=== PATIENT | male | born 2000 | race Caucasian/White ===

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

== ENCOUNTER → 2021-01-17 09:10 | Outpatient (BNVA) | payer BC, SELFPAY | PROVIDERS: Visit Provider Family Medicine | DX: I10 Essential (primary) hypertension (principal); E78.1 Pure hyperglyceridemia; Z68.45 Body mass index [BMI] 70 or greater, adult | CPT/HCPCS: 80053; 80061 ==

== ENCOUNTER → 2022-02-08 10:13 | Outpatient (BNVA) | payer BC, SELFPAY | PROVIDERS: PCP Family Medicine; Visit Provider Family Medicine | DX: I10 Essential (primary) hypertension (principal); K21.9 Gastro-esophageal reflux disease without esophagitis; E78.1 Pure hyperglyceridemia | CPT/HCPCS: 80053; 80061 ==

== ENCOUNTER → 2023-07-24 16:32 | Outpatient (BNVA) | payer OTHER, SELFPAY | PROVIDERS: PCP Family Medicine; Visit Provider Family Medicine | DX: I10 Essential (primary) hypertension (principal); K21.9 Gastro-esophageal reflux disease without esophagitis; E78.1 Pure hyperglyceridemia; Z68.44 Body mass index [BMI] 60.0-69.9, adult; J45.20 Mild intermittent asthma, uncomplicated | CPT/HCPCS: 80053; 80061 ==

== ENCOUNTER 2024-05-13 12:23 | Emergency (ER) | payer OTHER, SELFPAY ==
[2024-05-13] VITALS (8 sets, daily range): BP systolic 155–162; BP diastolic 96–112; PULSE 73–105; RESP 18–20; TEMP 36.4; O2SAT 98–100
--- NOTE | 2024-05-13 12:42 | ED_ITS ---
HPI - Abdominal Pain 2 General: Chief Complaint: Abdominal Pain Stated Complaint: rt side pain Time Seen by Provider: 05/13/24 12:31 Source: patient and family Mode of arrival: ambulatory Limitations: no limitations History of Present Illness: Patient is a 24-year-old male with a history of hypertension, heartburn/acid reflux and super morbid obesity here with complaints of pain to his right upper quadrant that began around 2 to 3 AM this morning. Pain has been constant since onset. He states he has had nausea and vomiting since the pain started. He is not having any pain in his chest. He has not noticed any changes to his bowel movements. No fevers. States he had one similar episode approximately a year ago that lasted an hour or so before subsiding on its own. Denies shortness of breath or difficulty breathing. He is not having any flank pain or urinary symptoms. MD elicited complaint: abdominal pain Pertinent past history: none Onset (ago): hour(s) Pain Consistency: constant Location: RUQ Severity: severe Quality: sharp Radiation: none Migration to: no migration Exacerbating factors: nothing Relieving factors: nothing Associated Symptoms: Reports nausea and vomiting; Denies change in bowel habits, chills, constipation, diarrhea, dysuria, fever(s) and hematemesis Related Data Home Medications Medication Instructions Recorded Confirmed albuterol sulfate 90 mcg/actuation 2 puff inhalation Q6H PRN 05/13/24 05/13/24 aerosol inhaler Shortness Of Breath Or Wheezing Previous Rx's Medication Instructions Recorded famotidine 20 mg tablet 20 mg PO .at bedtime 90 days #90 07/24/23 tabs lisinopril 40 mg tablet 40 mg PO DAILY 90 days #90 tabs 07/24/23 metoprolol succinate 25 mg 25 mg PO DAILY 90 days #90 tabs 07/24/23 tablet,extended release 24 hr hydrocodone 5 mg-acetaminophen 325 1 tab PO Q6H PRN pain #14 tabs 05/13/24 mg tablet ondansetron 4 mg disintegrating 4 mg PO Q8H PRN nausea and 05/13/24 tablet vomiting #14 tabs Allergies Allergy/AdvReac Type Severity Reaction Status Date / Time Penicillins Allergy Unknown UNKNOWN Verified 07/24/23 16:16 Review of Systems 2 Const: Denies: fever(s), chills, body aches, fatigue or malaise Card: Denies: chest pain Resp: Denies: dyspnea GI: Reports: abdominal pain, nausea and vomiting; Denies: hematemesis, diarrhea, constipation or change in bowel habits : Denies: flank pain, difficulty urinating, dysuria, urinary frequency, urinary urgency or urinary hesitancy Musc: Denies: neck pain, back pain, extremity pain, extremity swelling, joint pain or joint swelling Skin/Breast: Denies: rash Neuro: Denies: headache(s), numbness in extremities, weakness in extremities, sensory changes or dizziness PFSH ED 2 PFSH: Medical History Hyperlipemia Asthma Hypertension Social History Smoking and tobacco/nicotine status: never used tobacco/nicotine Second hand smoke exposure: No Alcohol intake: never Substance/Drug Use: never Current gender identity: Male Physical Exam 2 Const: COMMON NORMALS: patient oriented x3 and alert EXAM LIMITATIONS: p hysical limitations (patient is super morbidly obese) GENERAL APPEARANCE: c ooperative NUTRITIONAL APPEARANCE: obese morbidly obese (super morbid obesity with a BMI of 59.1) ORIENTATION/CONSCIOUSNESS: Yes awake, Yes oriented to person, Yes oriented to place and Yes oriented to time Eye: COMMON NORMALS: no scleral icterus Resp: COMMON NORMALS: normal respiratory effort and clear to auscultation bilaterally AUSCULTATION: clear to auscultation bilaterally Cardio: COMMON NORMALS: regular rate and regular rhythm RATE: regular rate RHYTHM: regular rhythm GI: INSPECTION: Yes Abdominal panniculus present PALPATION: Yes Tenderness to palpation present (GI) Details: RUQ OTHER: palpation for hepatosplenomegaly is difficult given his morbid obesity : COMMON NORMALS: Yes no CVA tenderness BLADDER/KIDNEY EXAM: Yes no CVA tenderness Back/Pelvis: COMMON NORMALS: no CVA tenderness and thoracic and lumbar spine normal to inspection Extremity: GENERAL: Yes normal exam except as noted Neuro: COMMON NORMALS: patient oriented x3, moves all extremities, no focal motor deficits and no sensory deficits noted SENSORIUM/ORIENTATION: Yes alert, Yes oriented to person, Yes oriented to place and Yes oriented to time Skin: COMMON NORMALS: no rashes or lesions noted GENERAL SKIN EXAM: no rashes or lesions noted Course 2 Vital Signs: Vital signs: Vital Signs Temperature 97.6 F 05/13/24 12:38 Pulse Rate 86 05/13/24 14:30 Respiratory Rate 20 H 05/13/24 14:40 Blood Pressure 162/96 05/13/24 14:11 Pulse Oximetry 99 05/13/24 14:40 Oxygen Delivery Me thod Room Air 05/13/24 14:30 MDM - Abdominal Pain Medical Decision Making Patient is a 24-year-old male with a history of super morbid obesity with a BMI of 59.1 here for right upper quadrant abdominal pain beginning earlier this morning. He has had a similar episode previously that seemed to resolve on its own. US performed here in the emergency department showing hepatomegaly and cholelithiasis. No gallbladder wall thickening or pericholecystic fluid. Blood work showing a white count of 14.68. I suspect this most likely is secondary to have vomiting this morning. His LFTs and lipase are unremarkable. Will have him follow-up with general surgery for further evaluation/management. Did discuss with him and the mother that they are likely to recommend weight loss prior to surgery. Mother states that he has been on every diet there is and nothing works . Return precautions discussed from an ED standpoint. Dietary restrictions discussed. Medical Records I reviewed the patient's medical records. Lab Data I reviewed the patient's lab results. 05/13/24 12:59 05/13/24 12:59 Labs/Radiology: Radiology Impressions Gallbladder Ultrasound 05/13/24 12:52 IMPRESSION: Technically difficult study due to body habitus. 1. Hepatomegaly with coarsened echogenicity likely due to fatty infiltration. Recommend correlation with liver function tests. 2. Cholelithiasis. No gallbladder wall thickening pericholecystic fluid. Gallbladder is contracted. 3. No hydronephrosis in the RIGHT kidney. Laboratory Results WBC 14.68 10^3/uL (3.29-11.43) H 05/13/24 12:59 RBC 5.44 10^6/uL (3.85-5.65) 05/13/24 12:59 Hgb 16.20 g/dL (11.27-16.99) 05/13/24 12:59 Hct 47.4 % (37-53) 05/13/24 12:59 MCV 87.1 fl (82-101) 05/13/24 12:59 MCH 29.8 pg (27-33) 05/13/24 12:59 MCHC 34.2 g/dL (30-55) 05/13/24 12:59 RDW 12.2 % (12.1-15.1) 05/13/24 12:59 Plt Count 332 10^3/cmm (157-399) 05/13/24 12:59 MPV 9.2 fL (7.4-10.4) 05/13/24 12:59 Neut % (Auto) 88.7 % 05/13/24 12:59 Lymph % (Auto) 7.8 % 05/13/24 12:59 [place] % (Auto) 2.8 % 05/13/24 12:59 Eos % (Auto) 0.1 % 05/13/24 12:59 Baso % (Auto) 0.3 % 05/13/24 12:59 Neut # (Auto) 13.02 10^3/uL (1.8-7.7) H 05/13/24 12:59 Lymph # (Auto) 1.1 10^3/uL (0.8-4.8) 05/13/24 12:59 [place] # (Auto) 0.4 10^3/uL (0.2-0.9) 05/13/24 12:59 Eos # (Auto) 0.0 10^3/uL (0.0-0.8) 05/13/24 12:59 Baso # (Auto) 0.1 10^3/uL (0.0-0.1) 05/13/24 12:59 Nucleated RBC % (auto) 0 % 05/13/24 12:59 Nucleated RBCs # 0.0 /100WBC 05/13/24 12:59 Sodium 136 mmol/L (136-145) 05/13/24 12:59 Potassium 3.9 mmol/L (3.5-5.1) 05/13/24 12:59 Chloride 100 mmol/L (98-107) 05/13/24 12:59 Carbon Dioxide 20 mmol/L (22-29) L 05/13/24 12:59 Anion Gap 19.9 (5-19) H 05/13/24 12:59 BUN 12 mg/dL (6-20) 05/13/24 12:59 Creatinine 0.6 mg/dL (0.7-1.2) L 05/13/24 12:59 GFR Calculation 167.0 mL/min (90-130) H 05/13/24 12:59 Glucose 138 mg/dL (65-115) H 05/13/24 12:59 Calculated Osmolality 284 mOsm/kg (285-295) L 05/13/24 12:59 Calcium 9.9 mg/dL (8.5-10.5) 05/13/24 12:59 Total Bilirubin 0.5 mg/dL (0.15-1.2) 05/13/24 12:59 AST 14 U/L (0-40) 05/13/24 12:59 ALT 21 U/L (0-41) 05/13/24 12:59 Alkaline Phosphatase 130 U/L (40-130) 05/13/24 12:59 Total Protein 7.6 g/dL (6.6-8.7) 05/13/24 12:59 Albumin 4.4 g/dL (3.5-5.2) 05/13/24 12:59 Globulin 3.2 g/dL (1.3-4.6) 05/13/24 12:59 Lipase 12 U/L (13-60) L 05/13/24 12:59 Urine Color Yellow (Yellow) 05/13/24 14:18 Urine Appearance Clear (CLEAR) 05/13/24 14:18 Urine pH 7.0 (5-7) 05/13/24 14:18 Ur Specific [place] 1.031 (1.005-1.030) H 05/13/24 14:18 Urine Protein Trace (Negative) A 05/13/24 14:18 Urine Glucose (UA) Negative (Normal) 05/13/24 14:18 Urine Ketones 3+ (Negative) H 05/13/24 14:18 Urine Blood Negative (Negative) 05/13/24 14:18 Urine Nitrate Negative (Negative) 05/13/24 14:18 Urine Bilirubin Negative (Negative) 05/13/24 14:18 Urine Urobilinogen 1.0 mg/dL (Negative) 05/13/24 14:18 Ur Leukocyte Esterase Negative (Negative) 05/13/24 14:18 Urine RBC 0-2 /hpf (0-2) 05/13/24 14:18 Urine WBC 0-5 /hpf (0-5) 05/13/24 14:18 Ur Squamous Epith Cells 0-5 /hpf (0-5) 05/13/24 14:18 Amorphous Sediment Not Reportable 05/13/24 14:18 Urine Bacteria None seen /hpf (NONE) 05/13/24 14:18 Hyaline Casts 0.40 /lpf 05/13/24 14:18 All radiology interpretation(s) finalized by discharge Discharge Plan Discharge Patient Disposition: Home Clinical Impression: Symptomatic cholelithiasis Condition: Stable Prescriptions: New hydrocodone-acetaminophen 5-325 mg tablet 1 tab PO Q6H PRN (Reason: pain) Qty: 14 0RF ondansetron 4 mg tablet,disintegrating 4 mg PO Q8H PRN (Reason: nausea and vomiting) Qty: 14 0RF No Action lisinopril 40 mg tablet 40 mg PO DAILY 90 Days Qty: 90 3RF famotidine 20 mg tablet 20 mg PO .at bedtime 90 Days Qty: 90 3RF metoprolol succinate 25 mg tablet extended release 24 hr 25 mg PO DAILY 90 Days Qty: 90 3RF albuterol sulfate 90 mcg/actuation HFA aerosol inhaler 2 puff inhalation Q6H PRN (Reason: Shortness Of Breath Or Wheezing) Discharge Orders: Discharge ED (Routine); Ordered 05/13/24 Ordered By: Danette Bansal Referrals: Liberty Rowell MD [Primary Care Provider] - Patient Instructions: Cholelithiasis, Gallstones (ED) Activity Restrictions/Additional Instructions: As we discussed, we will place a referral to get patient set up with general surgery for further evaluation of his gallstones. You need to return to the emergency department for worsening pain, continued episodes of vomiting, yellowing to his skin or eyes, fevers, or any other concerns you may have. 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
--- NOTE | 2024-05-13 12:52 | US_ITS ---
WS: [id number] ULTRASOUND ABDOMEN LIMITED CLINICAL INFORMATION: RUQ pain COMPARISON: None. FINDINGS: Liver Size: Enlarged Craniocaudal length: 18.4 cm. Echogenicity: Coarse Surface nodularity: None. Mass (size and location): None. Bile ducts Intrahepatic ducts: Normal. Common bile duct diameter: 0.5 cm. Gallbladder Cholelithiasis Gallstones: Present Gallbladder sludge: None. Gallbladder wall thickening: None. Pericholecystic fluid: None. Sonographic [place] sign: Absent. Pancreas Not well visualized Right kidney: Normal. Hydronephrosis: None. Size: 10.5 cm x 5.7 cm x 7.1 cm. Abdominal aorta and IVC Visualized portions are normal. Ascites: None. US/US gall bladder [id number] IMPRESSION: Technically difficult study due to body habitus. 1. Hepatomegaly with coarsened echogenicity likely due to fatty infiltration. Recommend correlation with liver function tests. 2. Cholelithiasis. No gallbladder wall thickening pericholecystic fluid. Gallb ladder is contracted. 3. No hydronephrosis in the RIGHT kidney.
[2024-05-13] MEDS: lisinopril 20 mg Tablet 40 MG PO (13:01)
[2024-05-13 13:09] LABS: Basophils # 0.1 10^3/uL (0.0-0.1); Basophils % 0.3 %; Eosinophils % 0.1 %; Hematocrit 47.4 % (37-53); Lymphocytes # 1.1 10^3/uL (0.8-4.8); Lymphocytes % 7.8 %; Mean Corpuscular HGB Conc 34.2 g/dL (30-55); Mean Corpuscular Hemoglobin 29.8 pg (27-33); Mean Corpuscular Volume 87.1 fl (82-101); Mean Platelet Volume 9.2 fL (7.4-10.4); Monocytes # 0.4 10^3/uL (0.2-0.9); Monocytes % 2.8 %; Neutrophils # 13.02 10^3/uL (1.8-7.7); Neutrophils % 88.7 %; Nucleated Red Blood Cells % 0 %; Platelet Count 332 10^3/cmm (157-399); Red Blood Count 5.44 10^6/uL (3.85-5.65); Red Cell Distribution Width 12.2 % (12.1-15.1); White Blood Count 14.68 10^3/uL (3.29-11.43)
[2024-05-13 13:27] LABS: Alanine Aminotransferase 21 U/L (0-41); Albumin Level 4.4 g/dL (3.5-5.2); Alkaline Phosphatase 130 U/L (40-130); Anion Gap 19.9 (5-19); Aspartate Amino Transferase 14 U/L (0-40); Blood Urea Nitrogen 12 mg/dL (6-20); Calcium 9.9 mg/dL (8.5-10.5); Carbon Dioxide 20 mmol/L (22-29); Chloride 100 mmol/L (98-107); Creatinine Clr Calc Pharmacy 302.3009; Globulin 3.2 g/dL (1.3-4.6); Glucose 138 mg/dL (65-115); Lipase 12 U/L (13-60); Osmolality Calculated 284 mOsm/kg (285-295); Potassium 3.9 mmol/L (3.5-5.1); Sodium 136 mmol/L (136-145); Total Bilirubin 0.5 mg/dL (0.15-1.2); Total Protein 7.6 g/dL (6.6-8.7)
[2024-05-13 14:25] LABS: Bilirubin Urine Negative (Negative); Blood Urine Negative (Negative); Glucose Urine UA Negative (Normal); Ketones Urine 3+ (Negative); Leukocyte Esterase Urine Negative (Negative); Nitrate Urine Negative (Negative); Protein Urine Trace (Negative); Urine Appearance Clear (CLEAR); Urine Color Yellow (Yellow)
[2024-05-13 14:31] LABS: Add Urine Microscopic? YES; Bacteria Urine None Seen /hpf; RBC Urine 0-2 /hpf (0-2); Squamous Epithelial Cell Urine 0-5 /hpf (0-5); WBC Urine 0-5 /hpf (0-5)
[2024-05-13 14:33] LABS: Specific Gravity, Urine 1.031 (1.005-1.030)
[2024-05-13] MEDS: ondansetron 2 mg/ML SDV 2 mL 4 MG IVP (14:39)
[2024-05-13] MEDS: morphine 4 mg/mL SDV 1 mL IVP (14:40)
--- NOTE | 2024-05-16 07:29 | DCPLANNER ---
messaged gen surg for er f/u
== END 2024-05-13 15:06 | disposition home or self-care (01) ==
PROVIDERS: Emergency Provider Physician Assistant; PCP Family Medicine
DX: K80.20 Calculus of gallbladder without cholecystitis without obstruction (principal); E78.5 Hyperlipidemia, unspecified; I10 Essential (primary) hypertension
CPT/HCPCS: 36415; 76705; 80053; 81001; 83690; 85025; 96374; 96375; 99285; J2270; J2405

== ENCOUNTER 2024-11-20 13:44 | Emergency (ER) | payer OTHER, SELFPAY ==
[2024-11-20] VITALS (8 sets, daily range): BP systolic 143–173; BP diastolic 79–102; PULSE 77–106; RESP 20; TEMP 36.6; O2SAT 95–100
[2024-11-20 14:32] LABS: Basophils % 0.3 %; Hematocrit 45.9 % (37-53); Lymphocytes % 8.5 %; Mean Corpuscular HGB Conc 34.2 g/dL (30-55); Mean Corpuscular Hemoglobin 28.9 pg (27-33); Mean Corpuscular Volume 84.5 fl (82-101); Mean Platelet Volume 9.7 fL (7.4-10.4); Monocytes # 0.4 10^3/uL (0.2-0.9); Monocytes % 3.5 %; Neutrophils # 10.54 10^3/uL (1.8-7.7); Neutrophils % 87.3 %; Nucleated Red Blood Cells % 0 %; Platelet Count 326 10^3/cmm (157-399); Red Blood Count 5.43 10^6/uL (3.85-5.65); Red Cell Distribution Width 11.9 % (12.1-15.1); White Blood Count 12.07 10^3/uL (3.29-11.43)
[2024-11-20 14:47] LABS: Alanine Aminotransferase 37 U/L (0-41); Albumin Level 4.3 g/dL (3.5-5.2); Alkaline Phosphatase 113 U/L (40-130); Anion Gap 19.4 (5-19); Aspartate Amino Transferase 20 U/L (0-40); Blood Urea Nitrogen 13 mg/dL (6-20); Calcium 9.7 mg/dL (8.5-10.5); Carbon Dioxide 16 mmol/L (22-29); Chloride 106 mmol/L (98-107); Creatinine Clr Calc Pharmacy 258.4205; Glomerular Filtration Rate 119.8 mL/min (90-130); Glucose 137 mg/dL (65-115); Lipase 11 U/L (13-60); Osmolality Calculated 288 mOsm/kg (285-295); Potassium 3.4 mmol/L (3.5-5.1); Sodium 138 mmol/L (136-145); Total Bilirubin 0.7 mg/dL (0.15-1.2); Total Protein 7.3 g/dL (6.6-8.7)
--- NOTE | 2024-11-20 15:15 | ED_ITS ---
Documented by User: Jake Suarez DO 11/21/24 07:26 HPI - Abdominal Pain 2 General: Chief Complaint: Abdominal Pain Stated Complaint: abdominal pain, vomitting Time Seen by Provider: 11/20/24 15:15 History of Present Illness: 24-year-old male presents emergency room complaining of abdominal pain he said some nausea vomiting. Localizes pain to the right upper quadrant. He states in the past he has been told he has cholelithiasis he was referred to surgery they did not feel he was a candidate for surgery so he is just been observed he says he intermittently still does get the discomfort. He states last few days almost everything he eats makes it worse when he vomits it somewhat relieved. Denies any dysuria urgency or frequency no hematochezia melena hematemesis coffee- ground emesis. 24-year-old in with concerns of right up per quadrant pain. Patient initially evaluated by [facility] emergency department physician. He has had a prior episode very similar to this where there was concerns of possible biliary colic. No fever. He had a rather abrupt onset of the pain associated with some nausea. Patient denies any lower abdominal pain. Associated Symptoms: Reports nausea and vomiting; Denies chills, coffee ground emesis, dysuria, fever(s), hematochezia, hematemesis and melena Related Data Home Medications ?Medication ?Instructions ?Recorded ?Confirmed albuterol sulfate 90 mcg/actuation 2 puff inhalation Q 6H PRN 05/13/24 08/25/24 aerosol inhaler Shortness Of Breath Or Wheez ing Previous Rx's ?Medication ?Instructions ?Recorded famotidine 20 mg tablet 20 mg PO .at bedtime 90 days #90 08/25/24 tabs lisinopril 40 mg tablet 40 mg PO DAILY 90 days #90 t abs 08/25/24 metoprolol succinate 25 mg 25 mg PO DAILY 90 days #90 tabs 08/25/24 tablet,extended release 24 hr omeprazole 40 mg capsule,delayed 40 mg PO .am #30 caps 11/20/24 release Allergies Allergy/AdvReac Type Severity Reaction Status Date / Time Penicillins Allergy Unknown UNKNOWN Verified 11/20/24 14:12 Review of Systems 2 Const: Reports: change in appetite; Denies: fever(s) or chills Card: Denies: chest pain Resp: Denies: dyspnea GI: Reports: abdominal pain, nausea and vomiting; Denies: hematemesis, coffee ground emesis, hematochezia or melena : Denies: dysuria, urinary frequency or urinary urgency Musc: Denies: neck pain or back pain Skin/Breast: Denies: rash PFSH ED 2 PFSH: Medical History Hyperlipemia Asthma Hypertension Family History Mother Hypertension Grandmother Hypertension Father Hypertension Social History Smoking and tobacco/nicotine status: never used tobacco/nicotine Second hand smoke exposure: No Alcohol intake: never Substance/Drug Use: never Current gender identity: Male Physical Exam 2 Const: GENERAL APPEARANCE: cooperative ORIENTATION/CONSCIOUSNESS: Yes awake, Yes oriented to person, Yes oriented to place and Yes oriented to time HENMT: COMMON NORMALS: normocephalic, atraumatic and hearing grossly normal bilaterally HEAD & SCALP: normocephalic and atraumatic Resp: COMMON NORMALS: normal respiratory effort, No retractions, No use of accessory muscles and clear to auscultation bilaterally AUSCULTATION: clear to auscultation bilaterally Cardio: COMMON NORMALS: regular rate, regular rhythm and No murmurs present (Cardio) RATE: regular rate RHYTHM: regular rhythm GI: COMMON NORMALS: Soft to palpation and No hepatosplenomegaly present A USCULTATION: Yes normoactive bowel sounds PALPATION: Yes Soft to palpation, Yes Tenderness to palpation present (GI) (Mild tenderness right upper quadrant positive O[place]nor sign), No Guarding due to palpation present (GI) and Yes No hepatosplenomegaly present Extremity: COMMON NORMALS: normal to inspection, capillary refill normal, no clubbing, cyanosis or edema, no calf tenderness and no pedal edema Neuro: SENSORIUM/ORIENTATION: Yes oriented to person, Yes oriented to place and Yes oriented to time Skin: COMMON NORMALS: no rashes or lesions noted GENERAL SKIN EXAM: no rashes or lesions noted Course 2 Vital Signs: Vital signs: Vital Signs Temperature 97.8 F 11/20/24 14:08 Pulse Rate 106 H 11/20/24 21:43 Respiratory Rate 20 H 11/20/24 14:08 Blood Pressure 157/97 11/20/24 21:43 Pulse Oximetry 99 11/20/24 21:43 Oxygen Delivery Me thod Room Air 11/20/24 20:07 MDM - Abdominal Pain Medical Decision Making Labs reviewed very mild leukocytosis no elevation of T. bili or transaminases. CT has been completed pending read. Care signed out to Dr. Arroyo at change of shift. See final notes for diagnosis and disposition. 1. Abdominal Pain with Nausea and Vomiting - Resolved - Symptoms have completely resolved at time of reassessment - CT findings show cholelithiasis without acute cholecystitis - Differential diagnosis includes: a) Biliary colic/symptomatic cholelithiasis b) Gastroesophageal reflux disease/acid reflux c) Peptic ulcer disease 2. Cholelithiasis - Incidental finding on CT scan - Patient's symptoms are episodic and consistent with possible biliary colic - Clinical picture is complicated by conflicting specialist opinion regarding etiology 3. Hepatomegaly with Fatty Infiltration - Incidental finding on CT scan - Liver enzymes relatively normal Plan: 1. Discharge home as symptoms have resolved and no acute intervention required 2. Patient advised to follow up with PCP Dr. Liberty Rowell to discuss recent ED visits 3. PCP to review current episode and consider appropriate next steps, which may include: - Referral for upper endoscopy if GERD/PUD suspected - Surgical consultation for second opinion for gallbladder evaluation if biliary symptoms persist - Further evaluation of hepatic steatosis Medical Records I reviewed the patient's medical records. US/US gall bladder [id number] IMPRESSION: Technically difficult study due to body habitus. 1. Hepatomegaly with coarsened echogenicity likely due to fatty infiltration. Recommend correlation with liver function tests. 2. Cholelithiasis. No gallbladder wall thickening pericholecystic fluid. Gallbladder is contracted. 3. No hydronephrosis in the RIGHT kidney. Dictated By: Abebe Lara MD Signed By: Abebe Lara MD Signed Date/Time: 05/13/24 1432 DD/ 1425 Lab Data I reviewed the patient's lab results. 11/20/24 14:22 11/20/24 14:22 Labs/Radiology: Radiology Impressions Abdomen/Pelvis CT 11/20/24 16:15 IMPRESSION: 1. Cholecystolithiasis without evidence of cholecystitis or biliary obstruction. 2. No evidence of acute abdominal or pelvic process. 3. Hepatic steatosis. Laboratory Results WBC 12.07 10^3/uL (3.29-11.43) H 11/20/24 14:22 RBC 5.43 10^6/uL (3.85-5.65) 11/20/24 14:22 Hgb 15.70 g/dL (11.27-16.99) 11/20/24 14:22 Hct 45.9 % (37-53) 11/20/24 14:22 MCV 84.5 fl (82-101) 11/20/24 14:22 MCH 28.9 pg (27-33) 11/20/24 14:22 MCHC 34.2 g/dL (30-55) 11/20/24 14:22 RDW 11.9 % (12.1-15.1) L 11/20/24 14:22 Plt Count 326 10^3/cmm (157-399) 11/20/24 14:22 MPV 9.7 fL (7.4-10.4) 11/20/24 14:22 Neut % (Auto) 87.3 % 11/20/24 14:22 Lymph % (Auto) 8.5 % 11/20/24 14:22 [place] % (Auto) 3.5 % 11/20/24 14:22 Eos % (Auto) 0.0 % 11/20/24 14:22 Baso % (Auto) 0.3 % 11/20/24 14:22 Neut # (Auto) 10.54 10^3/uL (1.8-7.7) H 11/20/24 14:22 Lymph # (Auto) 1.0 10^3/uL (0.8-4.8) 11/20/24 14:22 [place] # (Auto) 0.4 10^3/uL (0.2-0.9) 11/20/24 14:22 Eos # (Auto) 0.0 10^3/uL (0.0-0.8) 11/20/24 14:22 Baso # (Auto) 0.0 10^3/uL (0.0-0.1) 11/20/24 14:22 Nucleated RBC % (auto) 0 % 11/20/24 14:22 Nucleated RBCs # 0.0 /100WBC 11/20/24 14:22 Sodium 138 mmol/L (136-145) 11/20/24 14:22 Potassium 3.4 mmol/L (3.5-5.1) L 11/20/24 14:22 Chloride 106 mmol/L (98-107) 11/20/24 14:22 Carbon Dioxide 16 mmol/L (22-29) L 11/20/24 14:22 Anion Gap 19.4 (5-19) H 11/20/24 14:22 BUN 13 mg/dL (6-20) 11/20/24 14:22 Creatinine 0.8 mg/dL (0.7-1.2) 11/20/24 14:22 GFR Calculation 119.8 mL/min (90-130) 11/20/24 14:22 Glucose 137 mg/dL (65-115) H 11/20/24 14:22 Calculated Osmolality 288 mOsm/kg (285-295) 11/20/24 14:22 Calcium 9.7 mg/dL (8.5-10.5) 11/20/24 14:22 Total Bilirubin 0.7 mg/dL (0.15-1.2) 11/20/24 14:22 AST 20 U/L (0-40) 11/20/24 14:22 ALT 37 U/L (0-41) 11/20/24 14:22 Alkaline Phosphatase 113 U/L (40-130) 11/20/24 14:22 Total Protein 7.3 g/dL (6.6-8.7) 11/20/24 14:22 Albumin 4.3 g/dL (3.5-5.2) 11/20/24 14:22 Globulin 3.0 g/dL (1.3-4.6) 11/20/24 14:22 Lipase 11 U/L (13-60) L 11/20/24 14:22 Urine Color Yellow (Yellow) 11/20/24 18:20 Urine Appearance Clear (CLEAR) 11/20/24 18:20 Urine pH 6.5 (5-7) 11/20/24 18:20 Ur Specific [place] 1.068 (1.005-1.030) H 11/20/24 18:20 Urine Protein 1+ (Negative) A 11/20/24 18:20 Urine Glucose (UA) Negative (Normal) 11/20/24 18:20 Urine Ketones 4+ (Negative) 11/20/24 18:20 Urine Blood Negative (Negative) 11/20/24 18:20 Urine Nitrate Negative (Negative) 11/20/24 18:20 Urine Bilirubin Negative (Negative) 11/20/24 18:20 Urine Urobilinogen 1.0 mg/dL (Negative) 11/20/24 18:20 Ur Leukocyte Esterase Negative (Negative) 11/20/24 18:20 Urine RBC 0-2 /hpf (0-2) 11/20/24 18:20 Urine WBC 0-5 /hpf (0-5) 11/20/24 18:20 Ur Squamous Epith Cells 0-5 /hpf (0-5) 11/20/24 18:20 Amorphous Sediment Not Reportable 11/20/24 18:20 Urine Bacteria None seen /hpf (NONE) 11/20/24 18:20 Hyaline Casts 0.40 /lpf 11/20/24 18:20 Discharge Plan Discharge Patient Disposition: Home Clinical Impression: Abdominal pain, Cholelithiasis Condition: Stable Prescriptions: New omeprazole 40 mg capsule,delayed release(DR/EC) 40 mg PO .am Qty: 30 0RF No Action lisinopril 40 mg tablet 40 mg PO DAILY 90 Days Qty: 90 3RF metoprolol succinate 25 mg tablet extended release 24 hr 25 mg PO DAILY 90 Days Qty: 90 3RF famotidine 20 mg tablet 20 mg PO .at bedtime 90 Days Qty: 90 3RF albuterol sulfate 90 mcg/actuation HFA aerosol inhaler 2 puff inhalation Q6H PRN (Reason: Shortness Of Breath Or Wheezing) Discharge Orders: Discharge ED (Routine); Ordered 11/20/24 Ordered By: Vishnu Arroyo Referrals: Liberty Rowell MD [Primary Care Provider, Family Practice] Discharge Diet: Low Fat Discharge Activity: Resume usual activity Patient Instructions: Abdominal Pain (ED), Opioid Safety, Pain Management Activity Restrictions/Additional Instructions: 1. Add new prescription to Pepcid to treat inflammation in the stomach or possible heartburn. 2. Follow-up with Dr. Rowell to discuss case and ongoing treatment and management. 3. Return for high fever, intractable vomiting or abdominal pain. Print Language: Slovenian Coding Level of Care Code ED Helmet Hat Brim Cutter for Chg Fwd Documented by User: Vishnu Arroyo DO 11/20/24 21:35 HPI - Abdominal Pain 2 General: Chief Complaint: Abdominal Pain Stated Complaint: abdominal pain, vomitting Time Seen by Provider: 11/20/24 15:15 History of Present Illness: 24-year-old in with concerns of right up per quadrant pain. Patient initially evaluated by [facility] emergency department physician. He has had a prior episode very similar to this where there was concerns of possible biliary colic. No fever. He had a rather abrupt onset of the pain associated with some nausea. Patient denies any lower abdominal pain. Related Data Home Medications ?Medication ?Instructions ?Recorded ?Confirmed albuterol sulfate 90 mcg/actuation 2 puff inhalation Q 6H PRN 05/13/24 08/25/24 aerosol inhaler Shortness Of Breath Or Wheez ing Previous Rx's ?Medication ?Instructions ?Recorded famotidine 20 mg tablet 20 mg PO .at bedtime 90 days #90 08/25/24 tabs lisinopril 40 mg tablet 40 mg PO DAILY 90 days #90 t abs 08/25/24 metoprolol succinate 25 mg 25 mg PO DAILY 90 days #90 tabs 08/25/24 tablet,extended release 24 hr omeprazole 40 mg capsule,delayed 40 mg PO .am #30 caps 11/20/24 release Allergies Allergy/AdvReac Type Severity Reaction Status Date / Time Penicillins Allergy Unknown UNKNOWN Verified 11/20/24 14:12 PFSH ED 2 PFSH: Medical History Hyperlipemia Asthma Hypertension Family History Mother Hypertension Grandmother Hypertension Father Hypertension Social History Smoking and tobacco/nicotine status: never used tobacco/nicotine Second hand smoke exposure: No Alcohol intake: never Substance/Drug Use: never Current gender identity: Male Course 2 Vital Signs: Vital signs: Vital Signs Temperature 97.8 F 11/20/24 14:08 Pulse Rate 106 H 11/20/24 21:43 Respiratory Rate 20 H 11/20/24 14:08 Blood Pressure 157/97 11/20/24 21:43 Pulse Oximetry 99 11/20/24 21:43 Oxygen Delivery Me thod Room Air 11/20/24 20:07 MDM - Abdominal Pain Medical Decision Making 1. Abdominal Pain with Nausea and Vomiting - Resolved - Symptoms have completely resolved at time of reassessment - CT findings show cholelithiasis without acute cholecystitis - Differential diagnosis includes: a) Biliary colic/symptomatic cholelithiasis b) Gastroesophageal reflux disease/acid reflux c) Peptic ulcer disease 2. Cholelithiasis - Incidental finding on CT scan - Patient's symptoms are episodic and consistent with possible biliary colic - Clinical picture is complicated by conflicting specialist opinion regarding etiology 3. Hepatomegaly with Fatty Infiltration - Incidental finding on CT scan - Liver enzymes relatively normal Plan: 1. Discharge home as symptoms have resolved and no acute intervention required 2. Patient advised to follow up with PCP Dr. Liberty Rowell to discuss recent ED visits 3. PCP to review current episode and consider appropriate next steps, which may include: - Referral for upper endoscopy if GERD/PUD suspected - Surgical consultation for second opinion for gallbladder evaluation if biliary symptoms persist - Further evaluation of hepatic steatosis Lab Data 11/20/24 14:22 11/20/24 14:22 Labs/Radiology: Radiology Impressions Abdomen/Pelvis CT 11/20/24 16:15 IMPRESSION: 1. Cholecystolithiasis without evidence of cholecystitis or biliary obstruction. 2. No evidence of acute abdominal or pelvic process. 3. Hepatic steatosis. Laboratory Results WBC 12.07 10^3/uL (3.29-11.43) H 11/20/24 14:22 RBC 5.43 10^6/uL (3.85-5.65) 11/20/24 14:22 Hgb 15.70 g/dL (11.27-16.99) 11/20/24 14:22 Hct 45.9 % (37-53) 11/20/24 14:22 MCV 84.5 fl (82-101) 11/20/24 14:22 MCH 28.9 pg (27-33) 11/20/24 14:22 MCHC 34.2 g/dL (30-55) 11/20/24 14:22 RDW 11.9 % (12.1-15.1) L 11/20/24 14:22 Plt Count 326 10^3/cmm (157-399) 11/20/24 14:22 MPV 9.7 fL (7.4-10.4) 11/20/24 14:22 Neut % (Auto) 87.3 % 11/20/24 14:22 Lymph % (Auto) 8.5 % 11/20/24 14:22 [place] % (Auto) 3.5 % 11/20/24 14:22 Eos % (Auto) 0.0 % 11/20/24 14:22 Baso % (Auto) 0.3 % 11/20/24 14:22 Neut # (Auto) 10.54 10^3/uL (1.8-7.7) H 11/20/24 14:22 Lymph # (Auto) 1.0 10^3/uL (0.8-4.8) 11/20/24 14:22 [place] # (Auto) 0.4 10^3/uL (0.2-0.9) 11/20/24 14:22 Eos # (Auto) 0.0 10^3/uL (0.0-0.8) 11/20/24 14:22 Baso # (Auto) 0.0 10^3/uL (0.0-0.1) 11/20/24 14:22 Nucleated RBC % (auto) 0 % 11/20/24 14: Nucleated RBCs # 0.0 /100WBC 11/20/24 14:22 Sodium 138 mmol/L (136-145) 11/20/24 14:22 Potassium 3.4 mmol/L (3.5-5.1) L 11/20/24 14:22 Chloride 106 mmol/L (98-107) 11/20/24 14:22 Carbon Dioxide 16 mmol/L (22-29) L 11/20/24 14:22 Anion Gap 19.4 (5-19) H 11/20/24 14:22 BUN 13 mg/dL (6-20) 11/20/24 14:22 Creatinine 0.8 mg/dL (0.7-1.2) 11/20/24 14:22 GFR Calculation 119.8 mL/min (90-130) 11/20/24 14:22 Glucose 137 mg/dL (65-115) H 11/20/24 14:22 Calculated Osmolality 288 mOsm/kg (285-295) 11/20/24 14:22 Calcium 9.7 mg/dL (8.5-10.5) 11/20/24 14:22 Total Bilirubin 0.7 mg/dL (0.15-1.2) 11/20/24 14:22 AST 20 U/L (0-40) 11/20/24 14:22 ALT 37 U/L (0-41) 11/20/24 14:22 Alkaline Phosphatase 113 U/L (40-130) 11/20/24 14:22 Total Protein 7.3 g/dL (6.6-8.7) 11/20/24 14:22 Albumin 4.3 g/dL (3.5-5.2) 11/20/24 14: Globulin 3.0 g/dL (1.3-4.6) 11/20/24 14:22 Lipase 11 U/L (13-60) L 11/20/24 14:22 Urine Color Yellow (Yellow) 11/20/24 18:20 Urine Appearance Clear (CLEAR) 11/20/24 18:20 Urine pH 6.5 (5-7) 11/20/24 18:20 Ur Specific [place] 1.068 (1.005-1.030) H 11/20/24 18:20 Urine Protein 1+ (Negative) A 11/20/24 18:20 Urine Glucose (UA) Negative (Normal) 11/20/24 18:20 Urine Ketones 4+ (Negative) 11/20/24 18:20 Urine Blood Negative (Negative) 11/20/24 18:20 Urine Nitrate Negative (Negative) 11/20/24 18:20 Urine Bilirubin Negative (Negative) 11/20/24 18:20 Urine Urobilinogen 1.0 mg/dL (Negative) 11/20/24 18:20 Ur Leukocyte Esterase Negative (Negative) 11/20/24 18:20 Urine RBC 0-2 /hpf (0-2) 11/20/24 18:20 Urine WBC 0-5 /hpf (0-5) 11/20/24 18:20 Ur Squamous Epith Cells 0-5 /hpf (0-5) 11/20/24 18:20 Amorphous Sediment Not Reportable 11/20/24 18:20 Urine Bacteria None seen /hpf (NONE) 11/20/24 18:20 Hyaline Casts 0.40 /lpf 11/20/24 18:20 All radiology interpretation(s) finalized by discharge ED provider radiology interpretation(s): CT scan revealed gallstones without evidence of cholecystitis Discharge Plan Discharge Patient Disposition: Home Clinical Impression: Abdominal pain, Cholelithiasis Condition: Stable Prescriptions: New omeprazole 40 mg capsule,delayed release(DR/EC) 40 mg PO .am Qty: 30 0RF No Action lisinopril 40 mg tablet 40 mg PO DAILY 90 Days Qty: 90 3RF metoprolol succinate 25 mg tablet extended release 24 hr 25 mg PO DAILY 90 Days Qty: 90 3RF famotidine 20 mg tablet 20 mg PO .at bedtime 90 Days Qty: 90 3RF albuterol sulfate 90 mcg/actuation HFA aerosol inhaler 2 puff inhalation Q6H PRN (Reason: Shortness Of Breath Or Wheezing) Discharge Orders: Discharge ED (Routine); Ordered 11/20/24 Ordered By: Vishnu Arroyo Referrals: Liberty Rowell MD [Primary Care Provider, Family Practice] Discharge Diet: Low Fat Discharge Activity: Resume usual activity Patient Instructions: Abdominal Pain (ED), Opioid Safety, Pain Management Activity Restrictions/Additional Instructions: 1. Add new prescription to Pepcid to treat inflammation in the stomach or possible heartburn. 2. Follow-up with Dr. Rowell to discuss case and ongoing treatment and management. 3. Return for high fever, intractable vomiting or abdominal pain. Print Language: Slovenian Coding Level of Care Code ED Helmet Hat Brim Cutter for Jacqueline Hidalgo
--- NOTE | 2024-11-20 16:15 | CTR_ITS ---
PROCEDURE INFORMATION: Exam: CT Abdomen And Pelvis With Contrast Exam date and time: 11/20/2024 5:30 PM Age: 24 years old Clinical indication: Abdominal pain; Localized; Right; Additional info: Abd pain TECHNIQUE: Imaging protocol: Computed tomography of the abdomen and pelvis with contrast. Radiation optimization: All CT scans at this facility use at least one of these dose optimization techniques: automated exposure control; mA and/or kV adjustment per patient size (includes targeted exams where dose is matched to clinical indication); or iterative reconstruction. Contrast material: OMNIPAQUE 350; Contrast volume: 100 ml; Contrast route: INTRAVENOUS (IV); COMPARISON: US gall bladder [id number] 05/13/2024 1:18 PM RADIATION DOSE METRICS: Total DLP (mGy-cm): 1364.36 FINDINGS: Liver: Diffuse hepatic hypoattenuation. Gallbladder and biliary ducts: Probable faintly visualized gallstones are present in an otherwise normal-appearing gallbladder. No evidence of biliary obstruction. Pancreas: Normal. No ductal dilation. Spleen: Normal. No splenomegaly. Adrenal glands: Normal. No mass. Kidneys and ureters: Normal. No hydronephrosis. Stomach and bowel: Unremarkable. No obstruction. No mucosal thickening. Appendix: No evidence of appendicitis. Intraperitoneal space: Unremarkable. No free air. No significant fluid collection. Vasculature: Unremarkable. No abdominal aortic aneurysm. Lymph nodes: Unremarkable. No enlarged lymph nodes. Urinary bladder: Unremarkable as visualized. Reproductive: Unremarkable as visualized. Bones/joints: Unremarkable. No acute fracture. Soft tissues: Unremarkable. CT/CT abdomen pelvis w con* [id number] IMPRESSION: 1. Cholecystolithiasis without evidence of cholecystitis or biliary obstruction. 2. No evidence of acute abdominal or pelvic process. 3. Hepatic steatosis.
[2024-11-20] MEDS: ketorolac 30 mg/mL INJ IVP (17:08)
[2024-11-20] MEDS: ondansetron 2 mg/ML SDV 2 mL 4 MG IVP (17:09)
[2024-11-20] MEDS: iohexol 350 mg/mL 500 mL Btl (per mL) IV (17:34)
[2024-11-20 18:35] LABS: Bilirubin Urine Negative (Negative); Blood Urine Negative (Negative); Glucose Urine UA Negative (Normal); Ketones Urine 4+ (Negative); Leukocyte Esterase Urine Negative (Negative); Nitrate Urine Negative (Negative); Protein Urine 1+ (Negative); Urine Appearance Clear (CLEAR); Urine Color Yellow (Yellow); pH Urine 6.5 (5-7)
[2024-11-20 18:38] LABS: Add Urine Microscopic? YES; Bacteria Urine None Seen /hpf; RBC Urine 0-2 /hpf (0-2); Squamous Epithelial Cell Urine 0-5 /hpf (0-5); WBC Urine 0-5 /hpf (0-5)
[2024-11-20 18:45] LABS: Specific Gravity, Urine 1.068 (1.005-1.030)
== END 2024-11-20 21:47 | disposition home or self-care (01) ==
PROVIDERS: Physician Assistant; Emergency Provider Family Medicine; PCP Family Medicine
DX: K80.20 Calculus of gallbladder without cholecystitis without obstruction (principal); E78.5 Hyperlipidemia, unspecified; I10 Essential (primary) hypertension; J45.909 Unspecified asthma, uncomplicated; Z79.899 Other long term (current) drug therapy; Z88.0 Allergy status to penicillin
CPT/HCPCS: 36415; 74177; 80053; 81001; 83690; 85025; 96374; 96375; 99285; J1885; J2405

== ENCOUNTER 2025-02-08 11:01 | Emergency (ER) | payer OTHER, SELFPAY ==
--- OUTSIDE RECORDS SUMMARY | 2025-02-06 15:25 | XMS_ITS | Encounter Summary ---
Author Organization [facility] Address [address] [place] [address] Care Team Providers Care Convenience Store Manager Name Role Phone Mario Mascorro MD Primary Care Provider Reason for Visit * Reason Comments Arm pain Wrist Pain Encounter Details Date Type Department Care Team (Late st Contact Info) Description 02/06/2025 3:25 PM CDT - 02/06/2025 5:59 PM CDT Emergency [facility] Emergency Medicine [facility] [address] [phone] Kiki Velasco MD [address] [phone] Crushing injury of arm, right, initial encounter (Primary Dx) Discharge Disposition: Home or Self Care Social History Tobacco Use Types Packs/Day Years Used Date Smoking Tobacco: Never Tobacco Cessation:Counseling Given: Not Answered Alcohol Use Standard Drinks/Week Comments Yes 0 (1 standard drink = 0.6 oz pur e alcohol) Feeling Safe Answer Date Recorded Are you in a relationship wi th someone who hurts you emotionally and/or physically? No 02/06/2025 Sex and Gender Information Value Date Recorded Sex Assigned at Not on file Legal Sex Male 8:19 AM EDITOR BOOK Gender Identity Not on file Sexual Orientation Not on file documented as of this encounter Last Filed Vital Signs Vital Sign Reading Time Taken Comments Blood Pressure 112/68 02/06/2025 5:45 PM CDT Pulse 82 02/06/2025 5:45 PM CDT Temperature 36.9 C (98.4 F) 02/06/2025 3:29 PM CDT Respiratory Rate 18 02/06/2025 3:30 PM CDT Oxygen Saturation 100% 02/06/2025 5:45 PM CDT Inhaled Oxygen Concentration - - Weight 192.8 kg (425 lb) 02/06/2025 3:29 PM CDT Height 177.8 cm (5' 10 ) 02/06/2025 3:29 PM CDT Body Mass Index 60.98 02/06/2025 3:29 PM CDT documented in this encounter Discharge Instructions * Discharge Instructions* Kiki Velasco MD - 02/06/2025 5:54 PM CDT Apply a compressive KWASI bandage. Rest and elevate the affected painful area. Apply cold compresses intermittently as needed. As pain recedes, begin normal activities slowly as tolerated. You may take ibuprofen as needed with food and lots of water. * Attachments The following attachments cannot be sent through Care Everywhere. * Compression Bandage: General Info (Macedonian) * Acetaminophen (Macedonian) * RICE: General Info (Macedonian) * Arm Pain (Macedonian) * Ibuprofen (Macedonian) documented in this encounter Medications at Time of Discharge famotidine (PEPCID) 10 mg tablet Take 10 mg by mouth daily. lisinopriL (PRINIVIL) 10 mg tablet Take 10 mg by mouth daily. metoprolol succinate (TOPROL XL) 25 mg Extended Release 24 hour tablet Take 25 mg by mouth daily. pantoprazole (PROTONIX) 40 mg Tablet, Delayed Release (E.C.) Take 40 mg by mouth daily. albuterol sulfate HFA 90 mcg/actuation aerosol inhaler Take 2 Puffs by inhalation every 6 hours as needed for Shortness of Breath. documented as of this encounter ED Notes * Liberty Monroy RN - 02/06/2025 4:05 PM CDT Patient able to provide a date from last tetanus vaccine. It was 04/27/2023. MD Velasco alerted * Liberty Monroy RN - 02/06/2025 3:37 PM CDT Radiology called for imaging * Liberty Monroy RN - 02/06/2025 3:30 PM CDT Patient ambulated into the room and placed on monitor equipment. Patient presents with closed abrasions to his right forearm, hand, and knuckles. Patient reports he was working with a piece of machinery at work and got his hand pulled into the roller portion, crushing his arm/hand. Patient reports numbness and tingling to his fingers on the right hand. Patient is able to move his fingers and wrist with limited range of motion. Patient denies pain in his elbow or shoulder on the right side. Patient reports that he does not know when his last tetanus shot was. documented in this encounter Plan of Treatment Not on file documented as of this encounter Procedures Procedure Name Priority Date/Time Associated Diagnosis Comments XR HAND 3+ VW RIGHT Stat 02/06/2025 3 :51 PM CDT XR WRIST 3+ VW RIGHT Stat 02/06/2025 3:51 PM CDT XR FOREARM 2 VW RIGHT Stat 02/06/2025 3:51 PM CDT documented in this encounter Results * XR HAND 3+ VW RIGHT (02/06/2025 3:51 PM CDT) Anatomical Region Laterality Modality Wrist / Hand Computed Radiogr aphy 02/06/2025 3:51 PM CDT Impressions 02/06/2025 4:57 PM CDT Impression: No acute fracture. Narrative 02/06/2025 4:57 PM CDT Exam: XR HAND 3+ VW RIGHT Date/Time of Exam: 02/06/2025 3:51 PM Reason For Exam: Injury Diagnosis: See Reason for Exam Three views of the right hand are submitted. No acute fracture, dislocation or other bony abnormality is seen. Procedure Note Lebron Erwin MD - 02/06/2025 Exam: XR HAND 3+ VW RIGHT Date/Time of Exam: 02/06/2025 3:51 PM Reason For Exam: Injury Diagnosis: See Reason for Exam Three views of the right hand are submitted. No acute fracture, dislocation or other bony abnormality is seen. Impression: No acute fracture. us Kiki Velasco MD DIAGNOSTIC IMAGING ORDERABLES F inal Result * XR WRIST 3+ VW RIGHT (02/06/2025 3:51 PM CDT) Anatomical Region Laterality Modality Wrist / Hand Computed Radiogr aphy 02/06/2025 3:51 PM CDT Impressions 02/06/2025 4:56 PM CDT Impression: No acute fracture. Narrative 02/06/2025 4:56 PM CDT Exam: XR WRIST 3+ VW RIGHT Date/Time of Exam: 02/06/2025 3:51 PM Reason For Exam: Injury Diagnosis: See Reason for Exam Three views of the right wrist are submitted. No acute fracture, dislocation or other bony abnormality is seen. Procedure Note Lebron Erwin MD - 02/06/2025 Exam: XR WRIST 3+ VW RIGHT Date/Time of Exam: 02/06/2025 3:51 PM Reason For Exam: Injury Diagnosis: See Reason for Exam Three views of the right wrist are submitted. No acute fracture, dislocation or other bony abnormality is seen. Impression: No acute fracture. us Kiki Velasco MD DIAGNOSTIC IMAGING ORDERABLES F inal Result * XR FOREARM 2 VW RIGHT (02/06/2025 3:51 PM CDT) Anatomical Region Laterality Modality Upper Extremity Computed Radiogr aphy 02/06/2025 3:51 PM CDT Impressions 02/06/2025 4:56 PM CDT Impression: No acute fracture. Narrative 02/06/2025 4:56 PM CDT Exam: XR FOREARM 2 VW RIGHT Date/Time of Exam: 02/06/2025 3:51 PM Reason For Exam: Injury Diagnosis: See Reason for Exam AP and lateral views of the right forearm are submitted. No acute fracture, dislocation or other bony abnormality is seen. Procedure Note Lebron Erwin MD - 02/06/2025 Exam: XR FOREARM 2 VW RIGHT Date/Time of Exam: 02/06/2025 3:51 PM Reason For Exam: Injury Diagnosis: See Reason for Exam AP and lateral views of the right forearm are submitted. No acute fracture, dislocation or other bony abnormality is seen. Impression: No acute fracture. us Kiki Velasco MD DIAGNOSTIC IMAGING ORDERABLES F inal Result documented in this encounter Visit Diagnoses Diagnosis Crushing injury of arm, right, initial encounter- Primary Crushing injury of arm, right, initial encounter documented in this encounter Administered Medications Inactive Administered Medications - up to 3 most recent administrations Medication Order MAR Action Action Date Dose Rate Site oxyCODONE-acetaminophen (PERCOCET) 5-325 mg per tablet 1 Tablet 1 Tablet, Oral, ONE TIME ONLY, 1 dose, On Sun02/06/25 at 1615, Routine Given 02/06/2025 4:03 PM CDT 1 Tablet documented in this encounter Active and Recently Administered Medications Times are shown in CDT. Scheduled Medication Order 02/04/2025 02/05/2025 02/06/2025 oxyCODONE-acetaminophen (PERCOCET) 5-325 mg per tablet 1 Tablet (COMPLETED) 1 Tablet, Oral, ONE TIME ONLY, 1 dose, On Sun02/06/25 at 1615, Routine 1603 (Given - Provid er: Liberty Monroy RN) documented in this encounter Care Teams Convenience Store Manager Relationship Specialty Start Date End Date Mario Mascorro MD [address] [place] [address] PCP - General 06/14/07 documented as of this encounter
--- OUTSIDE RECORDS SUMMARY | 2025-02-08 11:07 | XMS_ITS | Encounter Summary ---
Author Organization [facility] Address [address] [place] [address] Care Team Providers Care Soup Mixer Name Role Phone Mario Mascorro MD Primary Care Provider [phone] Encounter Details Date Type Department Care Team (Latest Contact Info) Description 08/19/2004 Outpatient Historical [facility] Medicine [address] [phone] Betzy Lopez MD [address] [place] [phone] ACUTE PHARYNGITIS (Primary Dx); ACUTE URI NOS Social History Tobacco Use Types Packs/Day Years Used Date Smoking Tobacco: Never Assessed Sex and Gender Information Value Date Recorded Sex Assigned at Not on file 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
--- OUTSIDE RECORDS SUMMARY | 2025-02-08 11:07 | XMS_ITS | Encounter Summary ---
Author Organization [facility] Address [address] [place] [address] Care Team Providers Care Business Trainer Name Role Phone Mario Mascorro MD Primary Care Provider [phone] Encounter Details Date Type Department Care Team (Latest Contact Info) Description 08/09/2006 Outpatient Historical [facility] Medicine [address] [phone] Doug Cleveland, COOKER SULFATE [address] [place] [address] Unspecified Otitis Media (Primary Dx) Social History Tobacco Use Types Packs/Day Years Used Date Smoking Tobacco: Never Assessed Sex and Gender Information Value Date Recorded Sex Assigned at Not on file Legal Sex Male 3:16 AM GEOLOGY PROFESSOR Gender Identity Not on file Sexual Orientation Not on file documented as of this encounter Plan of Treatment Not on file documented as of this encounter Visit Diagnoses Diagnosis Unspecified otitis media- Primary documented in this encounter Care Teams Business Trainer Relationship Specialty Start Date End Date Mario Mascorro MD PCP - General 06/14/07 documented as of this encounter
--- OUTSIDE RECORDS SUMMARY | 2025-02-08 11:07 | XMS_ITS | Encounter Summary ---
Author Organization [facility] Address [address] [place] [address] Care Team Providers Care Jigger Machine Operator Name Role Phone Mario Mascorro MD Primary Care Provider Encounter Details Date Type Department Care Team (Latest Contact Info) Description 06/15/2004 Outpatient Historical [facility] Medicine [address] [phone] Mario Mascorro MD [address] [phone] Routine child health exam (Primary Dx) Social History Tobacco Use Types Packs/Day Years Used Date Smoking Tobacco: Never Assessed Sex and Gender Information Value Date Recorded Sex Assigned at Not on file Legal Sex Male 3:16 AM REHABILITATION NURSE Gender Identity Not on file Sexual Orientation Not on file documented as of this encounter Plan of Treatment Not on file documented as of this encounter Visit Diagnoses Diagnosis Routine child health exam- Primary Routine infant or child health check documented in this encounter Care Teams Jigger Machine Operator Relationship Specialty Start Date End Date Mario Mascorro MD PCP - General 06/14/07 documented as of this encounter
--- OUTSIDE RECORDS SUMMARY | 2025-02-08 11:07 | XMS_ITS | Encounter Summary ---
Author Organization [facility] Address [address] [place] [address] Care Team Providers Care Neurology Manager Name Role Phone Mario Mascorro MD Primary Care Provider [phone] Encounter Details Date Type Department Care Team (Latest Contact Info) Description 04/22/2007 Outpatient Historical [facility] Medicine [address] [phone] Doug Cleveland, TALENT ACQUISITION ASSISTANT [address] [place] [address] Allergic Rhinitis, Cause Unspecified (Primary Dx); Unspecified Otitis Media Social History Tobacco Use Types Packs/Day Years Used Date Smoking Tobacco: Never Assessed Sex and Gender Information Value Date Recorded Sex Assigned at Not on file Legal Sex Male 3:16 AM CHART COMPUTER Gender Identity Not on file Sexual Orientation Not on file documented as of this encounter Plan of Treatment Not on file documented as of this encounter Visit Diagnoses Diagnosis Allergic rhinitis, cause unspecified- Primary Unspecified otitis media documented in this encounter Care Teams Neurology Manager Relationship Specialty Start Date End Date Mario Mascorro MD PCP - General 06/14/07 documented as of this encounter
--- OUTSIDE RECORDS SUMMARY | 2025-02-08 11:07 | XMS_ITS | Encounter Summary ---
Author Organization [facility] Address [address] [place] [address] Care Team Providers Care Anesthesiology Physician Assistant Name Role Phone Mario Mascorro MD Primary Care Provider [phone] Encounter Details Date Type Department Care Team (Latest Contact Info) Description 03/13/2007 Outpatient Historical [facility] Medicine [address] [phone] Doug Cleveland, WEAVING MACHINE OPERATOR [address] [place] [address] Dermatophytosis of the Body (Primary Dx) Social History Tobacco Use Types Packs/Day Years Used Date Smoking Tobacco: Never Assessed Sex and Gender Information Value Date Recorded Sex Assigned at Not on file Legal Sex Male 3:16 AM AIRCRAFT LOG CLERK Gender Identity Not on file Sexual Orientation Not on file documented as of this encounter Plan of Treatment Not on file documented as of this encounter Visit Diagnoses Diagnosis Dermatophytosis of the body- Primary documented in this encounter Care Teams Anesthesiology Physician Assistant Relationship Specialty Start Date End Date Mario Mascorro MD PCP - General 06/14/07 documented as of this encounter
--- OUTSIDE RECORDS SUMMARY | 2025-02-08 11:07 | XMS_ITS | Encounter Summary ---
Author Organization [facility] Address [address] [place] [address] Care Team Providers Care Recordak Operator Name Role Phone Mario Mascorro MD Primary Care Provider [phone]- [phone] Encounter Details Date Type Department Care Team (Latest Contact Info) Description 01/09/2005 Outpatient Historical [facility] Medicine [address] [phone] Doug Cleveland, RETAIL SALES CLERK [address] [place] [address] Routine child health exam (Primary Dx) Social History Tobacco Use Types Packs/Day Years Used Date Smoking Tobacco: Never Assessed Sex and Gender Information Value Date Recorded Sex Assigned at Not on file Legal Sex Male 3:16 AM COMMUNITY HEALTH NAVIGATOR Gender Identity Not on file Sexual Orientation Not on file documented as of this encounter Plan of Treatment Not on file documented as of this encounter Visit Diagnoses Diagnosis Routine child health exam- Primary Routine infant or child health check documented in this encounter Care Teams Recordak Operator Relationship Specialty Start Date End Date Mario Mascorro MD PCP - General 06/14/07 documented as of this encounter
--- OUTSIDE RECORDS SUMMARY | 2025-02-08 11:07 | XMS_ITS | Encounter Summary ---
Author Organization [facility] Address [address] [place] [address] Care Team Providers Care Freezer Assistant Name Role Phone Mario Mascorro MD Primary Care Provider [phone] Encounter Details Date Type Department Care Team (Late st Contact Info) Description 06/10/2007 Outpatient Historical [facility] D[facility] 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
--- OUTSIDE RECORDS SUMMARY | 2025-02-08 11:07 | XMS_ITS | Encounter Summary ---
Author Organization [facility] Address [address] [place] [address] Care Team Providers Care Appraisal Specialist Name Role Phone Mario Mascorro MD Primary Care Provider [phone] Encounter Details Date Type Department Care Team (Latest Contact Info) Description 09/21/2005 Outpatient Historical [facility] Medicine [address] [phone] Mario Mascorro MD [address] [phone] Unspecified Dental Caries (Primary Dx) Social History Tobacco Use Types Packs/Day Years Used Date Smoking Tobacco: Never Assessed Sex and Gender Information Value Date Recorded Sex Assigned at Not on file Legal Sex Male 3:16 AM DOCUMENTUM CONSULTANT Gender Identity Not on file Sexual Orientation Not on file documented as of this encounter Plan of Treatment Not on file documented as of this encounter Visit Diagnoses Diagnosis Unspecified dental caries- Primary documented in this encounter Care Teams Appraisal Specialist Relationship Specialty Start Date End Date Mario Mascorro MD PCP - General 06/14/07 documented as of this encounter
--- OUTSIDE RECORDS SUMMARY | 2025-02-08 11:07 | XMS_ITS | Encounter Summary ---
Author Organization [facility] Address [address] [place] [address] Care Team Providers Care Day Habilitation Specialist Name Role Phone Mario Mascorro MD Primary Care Provider [phone] Encounter Details Date Type Department Care Team (Latest Contact Info) Description 09/21/2004 Outpatient Historical [facility] Medicine [address] [phone] Betzy Lopez MD [address] [place] [phone] ALLERGIC RHINITIS NOS (Primary Dx) Social History Tobacco Use Types Packs/Day Years Used Date Smoking Tobacco: Never Assessed Sex and Gender Information Value Date Recorded Sex Assigned at Not on file Legal Sex Male 3:16 AM BOX FABRICATOR Gender Identity Not on file Sexual Orientation Not on file documented as of this encounter Plan of Treatment Not on file documented as of this encounter Visit Diagnoses Diagnosis Allergic rhinitis, cause unspecified- Primary documented in this encounter Care Teams Day Habilitation Specialist Relationship Specialty Start Date End Date Mario Mascorro MD PCP - General 06/14/07 documented as of this encounter
--- OUTSIDE RECORDS SUMMARY | 2025-02-08 11:07 | XMS_ITS | Encounter Summary ---
Author Organization [facility] Address [address] [place] [address] Care Team Providers Care Osd Clerk Name Role Phone Mario Mascorro MD Primary Care Provider Encounter Details Date Type Department Care Team (Latest Contact Info) Description 08/15/2006 Outpatient Historical [facility] Medicine [address] [phone] Mario Mascorro MD [address] [phone] Unspecified Otitis Media (Primary Dx) Social History Tobacco Use Types Packs/Day Years Used Date Smoking Tobacco: Never Assessed Sex and Gender Information Value Date Recorded Sex Assigned at Not on file Legal Sex Male 3:16 AM SECURITY AGENT Gender Identity Not on file Sexual Orientation Not on file documented as of this encounter Plan of Treatment Not on file documented as of this encounter Visit Diagnoses Diagnosis Unspecified otitis media- Primary documented in this encounter Care Teams Osd Clerk Relationship Specialty Start Date End Date Mario Mascorro MD PCP - General 06/14/07 documented as of this encounter
--- OUTSIDE RECORDS SUMMARY | 2025-02-08 11:07 | XMS_ITS | Encounter Summary ---
Author Organization [facility] Address [address] [place] [address] Care Team Providers Care Bank Operations Officer Name Role Phone Mario Mascorro MD Primary Care Provider [phone] Encounter Details Date Type Department Care Team (Latest Contact Info) Description 07/12/2004 Outpatient Historical [facility] Medicine [address] [phone] Mario Mascorro MD [address] [address] OTITIS MEDIA NOS (Primary Dx) Social History Tobacco Use Types Packs/Day Years Used Date Smoking Tobacco: Never Assessed Sex and Gender Information Value Date Recorded Sex Assigned at Not on file Legal Sex Male 3:16 AM REHABILITATION SPECIALIST Gender Identity Not on file Sexual Orientation Not on file documented as of this encounter Plan of Treatment Not on file documented as of this encounter Visit Diagnoses Diagnosis Unspecified otitis media- Primary documented in this encounter Care Teams Bank Operations Officer Relationship Specialty Start Date End Date Mario Mascorro MD PCP - General 06/14/07 documented as of this encounter
--- OUTSIDE RECORDS SUMMARY | 2025-02-08 11:07 | XMS_ITS | Encounter Summary ---
Author Organization [facility] Address [address] [place] [address] Care Team Providers Care Circulation Man Name Role Phone Mario Mascorro MD Primary Care Provider Encounter Details Date Type Department Care Team (Latest Contact Info) Description 10/03/2006 Outpatient Historical [address] [phone] Doug Cleveland, SURGICAL ELASTIC KNITTER HAND FRAME [address] [place] [address] Acute Pharyngitis (Primary Dx); Viral Infection Social History Tobacco Use Types Packs/Day Years Used Date Smoking Tobacco: Never Assessed Sex and Gender Information Value Date Recorded Sex Assigned at Not on file Legal Sex Male 3:16 AM SAIL REPAIR PERSON Gender Identity Not on file Sexual Orientation Not on file documented as of this encounter Plan of Treatment Not on file documented as of this encounter Visit Diagnoses Diagnosis Acute pharyngitis- Primary Unspecified viral infection, in conditions classified elsewhere and of unspecified site documented in this encounter Care Teams Circulation Man Relationship Specialty Start Date End Date Mario Mascorro MD PCP - General 06/14/07 documented as of this encounter
--- OUTSIDE RECORDS SUMMARY | 2025-02-08 11:07 | XMS_ITS | Encounter Summary ---
Author Organization [facility] Address [address] [place] [address] Care Team Providers Care Paper Mill Superintendent Name Role Phone Mario Mascorro MD Primary Care Provider [phone] Encounter Details Date Type Department Care Team (Latest Contact Info) Description 11/28/2006 Outpatient Historical [facility] Medicine [address] [phone] Doug Cleveland, WILDLIFE CONTROL AGENT [address] [place] [address] Removal of Sutures (Primary Dx) Social History Tobacco Use Types Packs/Day Years Used Date Smoking Tobacco: Never Assessed Sex and Gender Information Value Date Recorded Sex Assigned at Not on file Legal Sex Male 3:16 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
--- OUTSIDE RECORDS SUMMARY | 2025-02-08 11:07 | XMS_ITS | Encounter Summary ---
Author Organization [facility] Address [address] [place] [address] Care Team Providers Care Job Coach/Job Developer Name Role Phone Mario Mascorro MD Primary Care Provider Encounter Details Date Type Department Care Team (Latest Contact Info) Description 06/21/2006 Outpatient Historical [facility] Medicine [address] [phone] Doug Cleveland, ASSISTANT GOLF COURSE SUPERINTENDENT [address] [place] [address] Open Wound of Scalp (Primary Dx) Social History Tobacco Use Types Packs/Day Years Used Date Smoking Tobacco: Never Assessed Sex and Gender Information Value Date Recorded Sex Assigned at Not on file Legal Sex Male 3:16 AM GUSSET STITCHER Gender Identity Not on file Sexual Orientation Not on file documented as of this encounter Plan of Treatment Not on file documented as of this encounter Visit Diagnoses Diagnosis Open wound of scalp- Primary Open wound of scalp, without mention of complication documented in this encounter Care Teams Job Coach/Job Developer Relationship Specialty Start Date End Date Mario Mascorro MD PCP - General 06/14/07 documented as of this encounter
--- OUTSIDE RECORDS SUMMARY | 2025-02-08 11:07 | XMS_ITS | Encounter Summary ---
Author Organization [facility] Address [address] [facility] Attn: Epic Prelude ADT [place]RI[place] [address] Care Team Providers Care Tobacco Sweeper Name Role Phone Mario Mascorro MD Primary Care Provider [phone]- [phone] Encounter Details Date Type Department Care Team (Latest Contact Info) Description 02/06/2025 Travel Social History Tobacco Use Types Packs/Day Years Used Date Smoking Tobacco: Never Alcohol Use Standard Drinks/Week Comments Yes 0 (1 standard drink = 0.6 oz pur e alcohol) Feeling Safe Answer Date Recorded Are you in a relationship wi th someone who hurts you emotionally and/or physically? 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
--- OUTSIDE RECORDS SUMMARY | 2025-02-08 11:07 | XMS_ITS | Encounter Summary ---
Author Organization [facility] Address [address] [place] [address] Care Team Providers Care Technical Healthcare Consultant Name Role Phone Mario Mascorro MD Primary Care Provider [phone]- [phone] Encounter Details Date Type Department Care Team (Latest Contact Info) Description 07/04/2004 Outpatient Historical [address] [phone] Sabino Cruz MD [address] [place] [phone] ACUTE URI NOS (Primary Dx) Social History Tobacco Use Types Packs/Day Years Used Date Smoking Tobacco: Never Assessed Sex and Gender Information Value Date Recorded Sex Assigned at Not on file Legal Sex Male 3:16 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
--- OUTSIDE RECORDS SUMMARY | 2025-02-08 11:07 | XMS_ITS | Encounter Summary ---
Author Organization [facility] Address [address] [place] [address] Care Team Providers Care Lighting Adviser Name Role Phone Mario Mascorro MD Primary Care Provider +1- [phone] Encounter Details Date Type Department Care Team (Latest Contact Info) Description 06/28/2005 Outpatient Historical 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
--- OUTSIDE RECORDS SUMMARY | 2025-02-08 11:07 | XMS_ITS | Encounter Summary ---
Author Organization [facility] Address [address] [place] [address] Care Team Providers Care Tear Down Man Name Role Phone Mario Mascorro MD Primary Care Provider +1- [phone] Encounter Details Date Type Department Care Team (Latest Contact Info) Description 06/28/2006 Outpatient Historical [facility] Medicine [address] [phone] Doug Cleveland, PREFITTER DOORS [address] [place] [address] Removal of Sutures (Primary Dx) Social History Tobacco Use Types Packs/Day Years Used Date Smoking Tobacco: Never Assessed Sex and Gender Information Value Date Recorded Sex Assigned at Not on file 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
--- OUTSIDE RECORDS SUMMARY | 2025-02-08 11:07 | XMS_ITS | Encounter Summary ---
Author Organization [facility] Address [address] [place] [address] Care Team Providers Care Chronometer Assembler Name Role Phone Mario Mascorro MD Primary Care Provider +1- [phone] Encounter Details Date Type Department Care Team (Latest Contact Info) Description 11/19/2006 Outpatient Historical [facility] [address] 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
--- OUTSIDE RECORDS SUMMARY | 2025-02-08 11:07 | XMS_ITS | Encounter Summary ---
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 Nurses documentation noted. Review of systems, social history and chart review performed on health questionnaire. OBJECTIVE: HEENT: Head is normocephalic. TMs are clear and lucent bilaterally. Clear drainage the nares; yellow drainage and green drainage to the posterior pharynx. The posterior pharynx pink, moist. NECK: Supple. Thyroid is not palpated. No cervical lymphadenopathy is noted. HEART: Regular rate and rhythm with no murmur. LUNGS: Lung sounds are clear. ABDOMEN: Soft, rounded and nontender to palpation. Bowel sounds are present. EXTREMITIES: Without defect. ASSESSMENT: Upper respiratory infection. PLAN: Rondec-DM syrup, one teaspoon q. 6 hours p.r.n. cough and congestion. Increase clear fluids. No smoking at home. Cool mist humidifier in sleeping room. Followup as needed. Doug Cleveland RN, BASTING CLEANER Betzy Lopez M.D. [facility] Electronically Signed by Doug Cleveland RN 08/05/2007 12:25 , 8:41 A A, 630/820 Document #: [id number] cc: NOSTIC TECHNICIAN NOSTIC TECHNICIAN documented in this encounter Plan of Treatment Not on file documented as of this encounter Visit Diagnoses Not on filedocumented in this encounter Care Teams Sourcing Consultant Relationship Specialty Start Date End Date Mario Mascorro MD PCP - General 06/14/07 documented as of this encounter
--- OUTSIDE RECORDS SUMMARY | 2025-02-08 11:07 | XMS_ITS | Encounter Summary ---
Author Organization [facility] Address [address] [place] [address] Care Team Providers Care Foreign Language Stenographer Name Role Phone Mario Mascorro MD Primary Care Provider Encounter Details Date Type Department Care Team (Latest Contact Info) Description 01/31/2006 Outpatient Historical [facility] Medicine [address] [phone] Mario Mascorro MD [address] [address] Routine Child Health Exam (Primary Dx) Social History Tobacco Use Types Packs/Day Years Used Date Smoking Tobacco: Never Assessed Sex and Gender Information Value Date Recorded Sex Assigned at Not on file 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
--- OUTSIDE RECORDS SUMMARY | 2025-02-08 11:07 | XMS_ITS | Encounter Summary ---
Author Organization [facility] Address [address] [place] [address] Care Team Providers Care Iron Caster Name Role Phone Mario Mascorro MD Primary Care Provider [phone] Encounter Details Date Type Department Care Team (Latest Contact Info) Description 10/19/2004 Outpatient Historical [facility] Medicine [address] [phone] Betzy Lopez MD [address] [place] [phone] ACUTE URI NOS (Primary Dx); ACUTE BRONCHITIS; ALLERGIC RHINITIS NOS Social History Tobacco Use Types Packs/Day Years Used Date Smoking Tobacco: Never Assessed Sex and Gender Information Value Date Recorded Sex Assigned at Not on file 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
--- OUTSIDE RECORDS SUMMARY | 2025-02-08 11:07 | XMS_ITS | Encounter Summary ---
Author Organization [facility] Address [address] [place] [address] Care Team Providers Care Strategic Solutions Consultant Name Role Phone Mario Mascorro MD Primary Care Provider [phone]- [phone] Encounter Details Date Type Department Care Team (Latest Contact Info) Description 08/10/2005 Outpatient Historical [facility] Medicine [address] [phone] Betzy Lopez MD [address] [place] [phone] ACUTE URI NOS (Primary Dx) Social History Tobacco Use Types Packs/Day Years Used Date Smoking Tobacco: Never Assessed Sex and Gender Information Value Date Recorded Sex Assigned at Not on file Legal Sex Male 3:16 AM SYNTHETIC SOIL 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
--- OUTSIDE RECORDS SUMMARY | 2025-02-08 11:07 | XMS_ITS | Encounter Summary ---
Author Organization [facility] Address [address] [place] [address] Care Team Providers Care Md Physician Dermatologist Name Role Phone Mario Mascorro MD Primary Care Provider [phone]- [phone] Encounter Details Date Type Department Care Team (Latest Contact Info) Description 04/17/2007 Outpatient Historical [facility] Medicine [address] [phone] Doug Cleveland, MATRIX REPAIRER [address] [place] [address] Dermatophytosis of the Body (Primary Dx) Social History Tobacco Use Types Packs/Day Years Used Date Smoking Tobacco: Never Assessed Sex and Gender Information Value Date Recorded Sex Assigned at Not on file 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
--- OUTSIDE RECORDS SUMMARY | 2025-02-08 11:07 | XMS_ITS | Encounter Summary ---
Author Organization [facility] Address [address] [place] [address] Care Team Providers Care Rack Loader Name Role Phone Mario Mascorro MD Primary Care Provider [phone]- [phone] Encounter Details Date Type Department Care Team (Latest Contact Info) Description 06/29/[address] 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
--- OUTSIDE RECORDS SUMMARY | 2025-02-08 11:07 | XMS_ITS | Encounter Summary ---
Author Organization [facility] Address [address] [place] [address] Care Team Providers Care Senior Reservoir Engineer Name Role Phone Mario Mascorro MD Primary Care Provider [phone]- [phone] Encounter Details Date Type Department Care Team (Latest Contact Info) Description 2006 Outpatient Historical [facility] Medicine [place] [address] [phone] Sherri Winn, [facility] [address] [address] Cough (Primary Dx); Allergy, Unspecified not Elsewhere Classified Social History Tobacco Use Types Packs/Day Years Used Date Smoking Tobacco: Never Assessed Sex and Gender Information Value Date Recorded Sex Assigned at Not on file 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
--- OUTSIDE RECORDS SUMMARY | 2025-02-08 11:07 | XMS_ITS | Encounter Summary ---
Author Organization [facility] Address [address] [place] [address] Care Team Providers Care Cotton Puller Name Role Phone Mario Mascorro MD Primary Care Provider [phone]- [phone] Encounter Details Date Type Department Care Team (Late st Contact Info) Description 04/25/2007 Outpatient Historical [facility] Dermatology- 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
--- OUTSIDE RECORDS SUMMARY | 2025-02-08 11:07 | XMS_ITS | Encounter Summary ---
Author Organization [facility] Address [address] [place] [address] Care Team Providers Care Marble Helper Name Role Phone Mario Mascorro MD Primary Care Provider +1- [phone] Encounter Details Date Type Department Care Team (Latest Contact Info) Description 04/25/2007 Outpatient Historical [facility] Medicine [address] [phone] Betzy Lopez MD [address] [place] [phone] Dysuria (Primary Dx); Insect Bite NEC-Infected Social History Tobacco Use Types Packs/Day Years Used Date Smoking Tobacco: Never Assessed Sex and Gender Information Value Date Recorded Sex Assigned at Not on file Legal Sex Male 3:16 AM MANAGED CARE COORDINATOR Gender Identity Not on file Sexual Orientation Not on file documented as of this encounter Plan of Treatment Not on file documented as of this encounter Visit Diagnoses Diagnosis Dysuria- Primary Other, multiple, and unspecified sites, insect bite, nonvenomous, infected(919.5) Other, multiple, and unspecified sites, insect bite, nonvenomous, infected documented in this encounter Care Teams Marble Helper Relationship Specialty Start Date End Date Mario Mascorro MD PCP - General 06/14/07 documented as of this encounter
--- OUTSIDE RECORDS SUMMARY | 2025-02-08 11:07 | XMS_ITS | Clinical Summary ---
Author Organization [facility] Address [address] [facility] Attn: Epic Prelude ADT [place]UZ [address] Care Team Providers Care Industrial Diamond Polisher Name Role Phone Mario Mascorro MD Primary Care Provider Allergies Active Allergy Reactions Criticality Noted Date Comments Cefuroxime Axetil Rash Low 08/31/2009 Penicillins Rash Low 04/05/2009 Medications famotidine (PEPCID) 10 mg tablet Take 10 mg by mouth daily. Active lisinopriL (PRINIVIL) 10 mg tablet Take 10 mg by mouth daily. Active metoprolol succinate (TOPROL XL) 25 mg Extended Release 24 hour tablet Take 25 mg by mouth daily. Active pantoprazole (PROTONIX) 40 mg Tablet, Delayed Release (E.C.) Take 40 mg by mouth daily. Active albuterol sulfate HFA 90 mcg/actuation aerosol inhaler Take 2 Puffs by inhalation every 6 hours as needed for Shortness of Breath. Active Active Problems Problem Noted Date Diagnosed Date Crushing injury of arm, right, initial encounter 02/06/2025 Encounters Date Type Department Care Team Description 02/06/2025 3:25 PM CDT - 02/06/2025 5:59 PM CDT Emergency [facility] Emergency Medicine [address] [place] [address] Kiki Velasco MD Crushing injury of arm, right, initial encounter (Primary Dx) Discharge Disposition: Home or Self Care 02/06/2025 Travel from Last 3 Months Immunizations Immunization Administration Dates Next Due (M-M-R II/PRIORIX)(12 MO UP) MEASLES, MUMPS AND RUBELLA VIRUS VACCINE, 0.5 ML IM/SUBCUT 01/09/2007 (VARIVAX)(12 MOS UP)VARICELL A VIRUS VACCINE (PF) 0.5 ML, SUB CUT 01/09/2007 Dt Dtp Dtap Vaccine 01/09/2007 IPV/OPV 01/09/2007 Family History Medical History Relation Name Comments Other Mother obesity Relation Name Status Comments Father Alive Mother Alive Social History Tobacco Use Types Packs/Day Years [...] on file 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 Gender Identity Not on file Sexual Orientation Not on file Last Filed Vital Signs Vital Sign Reading [...] Mass Index 60.98 02/06/2025 3:29 PM CDT Plan of Treatment Health Maintenance Due Date Last Done Comments HPV VACCINES (1 - Male 3-dos e series) 2016 DTAP/TDAP/TD VACCINES (2 - Tdap) 2020 01/10/20 07 INFLUENZA VACCINE (#1) 2025 HEPATITIS B VACCINES Completed 2001, 2001, 2001 Procedures Procedure Name Priority Date/Time Associated Diagnosis Comments XR HAND 3+ VW RIGHT Stat 02/06/2025 3 :51 PM CDT XR WRIST 3+ VW RIGHT Stat 02/06/2025 3:51 PM CDT XR FOREARM 2 VW RIGHT Stat 02/06/2025 3:51 PM CDT from Last 3 Months Results * XR HAND 3+ VW RIGHT [...] abnormality is seen. Impression: No acute fracture. Kiki Velasco MD DIAGNOSTIC IMAGING ORDERABLES F [...] MD DIAGNOSTIC IMAGING ORDERABLES F inal Result from Last 3 Months Insurance CHOICE [id number] Care Teams Industrial Diamond Polisher Relationship Specialty Start Date End Date Mario Mascorro MD [address] [place] [phone] PCP - General 06/14/07
--- OUTSIDE RECORDS SUMMARY | 2025-02-08 11:07 | XMS_ITS | Encounter Summary ---
Author Organization [facility] Address [address] [place] [address] Care Team Providers Care Hotel Or Motel Manager Name Role Phone Mario Mascorro MD Primary Care Provider Encounter Details Date Type Department Care Team (Latest Contact Info) Description 01/09/2007 Outpatient Historical [facility] Medicine [address] [phone] Mario Mascorro MD [address] [address] Routine Child Health Exam (Primary Dx) Social History Tobacco Use Types Packs/Day Years Used Date Smoking Tobacco: Never Assessed Sex and Gender Information Value Date Recorded Sex Assigned at Not on file 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
--- OUTSIDE RECORDS SUMMARY | 2025-02-08 11:07 | XMS_ITS | Clinical Summary ---
Author Organization [facility] Address [address] [place] [address] Care Team Providers Care Food Trades Assistants Name Role Phone Mario Mascorro MD Primary Care Provider Allergies Active Allergy Reactions Criticality Noted Date Comments Cefuroxime Axetil Rash Low 08/31/2009 Penicillins Rash Low 04/05/2009 Medications montelukast (SINGULAIR) 5 mg Oral Chew Take 5 mg by mouth see administration instructions. Active ranitidine HCl (ZANTAC) 150 mg Oral Cap Take 150 mg by mouth 2 times daily. Active budesonide-for moterol (SYMBICORT) 80-4.5 mcg/Actuation Inhalation HFAA Take 2 Puffs by inhalation 2 times daily. Active albuterol (PROVENTIL,JENNA TOLIN) 2.5 mg /3 mL (0.083 %) Inhalation NebuIndication s:Wheezing Take 3 mL by inhalation every 6 hours as needed for Shortness of Breath. 1 Package 3 0 Active brompheniramin e-pseudoephedr ine-dextrometh orphan (RONDEC DM) 4-45-15 mg/5 mL Oral Syrp Take 5 mL by mouth every 6 hours as needed. 240 mL 0 0 Active azithromycin (ZITHROMAX) 250 mg Oral tablet Take by mouth. Take 2 tabs the first day and 1 tab days 2-5 1 Package 0 0 Active loratadine (CLARITIN REDITABS) 10 mg Oral TbDL Take 1 Tab by mouth daily. 30 Tab 3 0 Active fluticasone (FLONASE) 50 mcg/spray Both Nostril SpSn Administer 2 Sprays in each nostril daily. 16 Gram 0 06/29/201 1 Active loratadine (ALLERGY RELIEF) 10 mg Oral tablet Take 1 Tab by mouth daily. 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/DESIGN MANAGER Gender Identity Not on file Sexual Orientation Not on file Last Filed Vital Signs Vital Sign Reading Time Taken Comments Blood Pressure - - Pulse 90 08/30/2009 4:30 PM CDT Temperature 36.6 C (97.9 F) 08/30/2009 4:30 PM CDT Respiratory Rate 22 08/30/2009 4:30 PM CDT Oxygen Saturation - - Inhaled Oxygen Concentration - - Weight 51.7 kg (114 lb) 08/30/2009 4:30 PM CDT Height - - Body Mass Index - - Plan of Treatment Health Maintenance Due Date Last Done Comments HPV VACCINES (1 - Male 3-dose series) 2016 DTAP/TDAP/TD VACCINES (2 - Tdap) 2020 01/10/20 07 HEPATITIS B VACCINES (1 of 3 - 19+ 3-dose series) 03/13 INFLUENZA VACCINE (#1) 2025 [place] Care Teams Food Trades Assistants Relationship Specialty Start Date End Date Mario Mascorro MD PCP - General 06/14/07
--- OUTSIDE RECORDS SUMMARY | 2025-02-08 11:07 | XMS_ITS | Encounter Summary ---
Author Organization [facility] Address [address] [place] [address] Care Team Providers Care Director Of Kids Name Role Phone Mario Mascorro MD Primary Care Provider [phone] Encounter Details Date Type Department Care Team (Latest Contact Info) Description 02/06/2007 Outpatient Historical [address] [id number] Doug Cleveland, [employer] [address] [place] [address] Dermatophytosis of the Body (Primary Dx) Social History Tobacco Use Types Packs/Day Years Used Date Smoking Tobacco: Never Assessed Sex and Gender Information Value Date Recorded Sex Assigned at Not on file 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
--- NOTE | 2025-02-08 11:08 | XRR_ITS ---
PROCEDURE INFORMATION: Exam: XR Right Hand Exam date and time: 02/08/2025 11:37 AM Age: 24 years old Clinical indication: Pain; Lower or forearm; Right; Additional info: RT wrist/forearm pain after crushing incident x 2 days ago TECHNIQUE: Imaging protocol: Radiologic exam of the right hand. Views: 3 or more views. COMPARISON: No relevant prior studies available. FINDINGS: Bones/joints: No fracture or dislocation. Joint spaces are normal. Soft tissues: Diffuse soft tissue swelling is present. XR/XR hand RT min 3V* [id number] IMPRESSION: 1. No fracture or dislocation. 2. Diffuse soft tissue swelling.
[2025-02-08 11:21] VITALS: BP 129/84; PULSE 74; RESP 18; TEMP 36.8; O2SAT 99; BMI 61.0
--- NOTE | 2025-02-08 11:48 | XRR_ITS ---
PROCEDURE INFORMATION: Exam: XR Right Forearm Exam date and time: 02/08/2025 11:47 AM Age: 24 years old Clinical indication: Pain; Lower or forearm; Right; Additional info: RT wrist/forearm pain after crushing incident x 2 days ago TECHNIQUE: Imaging protocol: Radiologic exam of the right forearm. Views: 2 views. COMPARISON: CR (UP EXM, ) 02/08/2025 11:37 AM FINDINGS: Bones/joints: Normal. Soft tissues: Subcutaneous edema and swelling overlies the dorsum of the forearm. XR/XR forearm RT 2V [id number] IMPRESSION: 1. Subcutaneous edema and swelling overlies the dorsum of the forearm. 2. No fracture or dislocation
--- NOTE | 2025-02-08 12:48 | W.ED.EXTPRO ---
HPI - Extremity Problem General: Chief complaint: Extremity Injury, Upper Stated complaint: R hand pain, numbness in fingers Time Seen by Provider: 02/08/25 12:48 History of Present Illness: 24-year-old male presents emergency room with complaints of right forearm pain. 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 He still is able to move his hand he has some difficulty with pain. He has an abrasion overlying the distal part of the radius. Moderate soft tissue swelling. Associated symptoms: Deny fever(s) Related Data Home Medications ?Medication ?Instructions ?Recorded ?Confirmed albuterol sulfate 90 mcg/actuation 2 puff inhalation Q6H PRN 05/13/24 08/25/24 aerosol inhaler Shortness Of Breath Or Wheezing Previous Rx's ?Medication ?Instructions ?Recorded famotidine 20 mg tablet 20 mg PO .at bedtime 90 days #90 08/25/24 tabs lisinopril 40 mg tablet 40 mg PO DAILY 90 days #90 tabs 08/25/24 metoprolol succinate 25 mg 25 mg PO DAILY 90 days #90 tabs 08/25/24 tablet,extended release 24 hr omeprazole 40 mg capsule,delayed 40 mg PO .am #30 caps 11/20/24 release diclofenac sodium 75 mg 75 mg PO Q12H PRN pain #20 tabs 02/08/25 tablet,delayed release hydrocodone 5 mg-acetaminophen 325 1 tab PO Q6H PRN pain #10 tabs 02/08/25 mg tablet mupirocin 2 % topical ointment 1 applic topical BID #22 grams 02/08/25 (Centany) Allergies Allergy/AdvReac Type Severity Reaction Status Date / Time Penicillins Allergy Unknown UNKNOWN Verified 02/08/25 11:20 Review of Systems Const: Denies: fever(s) or chills Musc: Reports: extremity pain and extremity swelling; Denies: neck pain or back pain Skin/Breast: Reports: other (Abrasion right forearm) [facility] ED PFSH: Medical History Hyperlipemia Asthma Hypertension Family History Mother Hypertension Grandmother Hypertension Father Hypertension Social History Smoking and tobacco/nicotine status: never used tobacco/nicotine Second hand smoke exposure: No Alcohol intake: never Substance/Drug Use: never Current gender identity: Male Physical Exam Const: GENERAL APPEARANCE: cooperative ORIENTATION/CONSCIOUSNESS: Yes awake, Yes oriented to person, Yes oriented to place and Yes oriented to time HENMT: COMMON NORMALS: normocephalic, atraumatic and hearing grossly normal bilaterally HEAD & SCALP: normocephalic and atraumatic Resp: COMMON NORMALS: normal respiratory effort, No retractions, No use of accessory muscles and clear to auscultation bilaterally AUSCULTATION: clear to auscultation bilaterally Cardio: COMMON NORMALS: regular rate, regular rhythm and No murmurs present (Cardio) RATE: regular rate RHYTHM: regular rhythm Extremity: OTHER: Patient has no obvious deformity or localized swelling abrasion overlying the distal radius. No significant pain with passive range of motion neurovascularly intact. Good capillary refill radial and ulnar pulses easily palpable sensation normal. Tested passive range of motion both with flexion extension of the fingers and with flexion extension of the wrist did not elicit pain disproportionate to exam Neuro: SENSORIUM/ORIENTATION: Yes oriented to person, Yes oriented to place and Yes oriented to time Skin: COMMON NORMALS: no rashes or lesions noted GENERAL SKIN EXAM: no rashes or lesions noted Course Vital Signs: Vital signs: Vital Signs Temperature 98.3 F 02/08/25 11:21 Pulse Rate 68 02/08/25 13:38 Respiratory Rate 18 02/08/25 13:38 Blood Pressure 141/102 02/08/25 13:38 Pulse Oximetry 97 02/08/25 13:38 Oxygen Delivery Me thod Room Air 02/08/25 12:53 MDM - Extremity (Nontraumatic) Medical Decision Making X-rays negative on physical exam there is no sign of compartment syndrome at this time. Reassurance given discharge home with pain medications elevate and ice as needed follow-up with primary care apply topical antibiotic ointment to the abrasion until healed Medical Records I reviewed the patient's medical records. Lab Data Radiology Impressions Hand X-Ray 02/08/25 11:08 IMPRESSION: 1. No fracture or dislocation. 2. Diffuse soft tissue swelling. Forearm X-Ray 02/08/25 11:48 IMPRESSION: 1. Subcutaneous edema and swelling overlies the dorsum of the forearm. 2. No fracture or dislocation All radiology interpretation(s) finalized by discharge Discharge Plan Discharge Patient Disposition: Home Clinical Impression: Crushing injury of forearm, right Condition: Stable Prescriptions: New hydrocodone-acetaminophen 5-325 mg tablet 1 tab PO Q6H PRN (Reason: pain) Qty: 10 0RF diclofenac sodium 75 mg tablet,delayed release (DR/EC) 75 mg PO Q12H PRN (Reason: pain) Qty: 20 0RF mupirocin [Centany] 2 % ointment 1 applic topical BID Qty: 22 0RF No Action lisinopril 40 mg tablet 40 mg PO DAILY 90 Days Qty: 90 3RF metoprolol succinate 25 mg tablet extended release 24 hr 25 mg PO DAILY 90 Days Qty: 90 3RF famotidine 20 mg tablet 20 mg PO .at bedtime 90 Days Qty: 90 3RF albuterol sulfate 90 mcg/actuation HFA aerosol inhaler 2 puff inhalation Q6H PRN (Reason: Shortness Of Breath Or Wheezing) omeprazole 40 mg capsule,delayed release(DR/EC) 40 mg PO .am Qty: 30 0RF Discharge Orders: Discharge ED (Routine); Ordered 02/08/25 Ordered By: Jake Suarez Referrals: Liberty Rowell MD [Primary Care Provider, Family Practice] Discharge Diet: Usual diet Discharge Activity: Resume usual activity Patient Instructions: Opioid Safety, Pain Management, Patient Portal & [place] Instructions Activity Restrictions/Additional Instructions: Thank you for choosing [facility] for your healthcare needs today. It is very important that you follow up as instructed or that you return to the Emergency Department should you have concerns or if your condition changes or worsens in any way. Emergency department visits are focused on emergent conditions, in some cases you may require further evaluation on an outpatient basis. You were seen in the emergency room with complaints of right forearm pain after an injury at work. X-rays do not show any signs of fracture. On exam there is no sign of compartment syndrome or infection. There is good blood flow to through the extremity. Recommend applying ice elevating arm whenever you are able you are given diclofenac and hydrocodone to use for pain apply topical antibiotic ointment prescribed to the abrasion. (Please note that included in your discharge packet is information concerning opioid safety and pain management. This information is given to all patients were discharged from the ER regardless of their discharge diagnosis or the medicines they usually take or are prescribed.) Print Language: [place] Coding Level of Care Code ED Fitness Specialist for Jacqueline Hidalgo
[2025-02-08 12:53] VITALS: BP 155/88; PULSE 89; RESP 16; O2SAT 99
[2025-02-08 13:38] VITALS: BP 141/102; PULSE 68; RESP 18; O2SAT 97
== END 2025-02-08 13:39 | disposition home or self-care (01) ==
PROVIDERS: Emergency Provider Family Medicine; PCP Family Medicine
DX: S57.81XA Crushing injury of right forearm, initial encounter (principal); E78.5 Hyperlipidemia, unspecified; I10 Essential (primary) hypertension; X58.XXXA Exposure to other specified factors, initial encounter
CPT/HCPCS: 73090; 73130; 99283